=== PATIENT | female | born 1945 | race Caucasian/White ===

== ENCOUNTER 2022-01-11 16:15 | Emergency (ER) | payer OTHER, MEDICARE ==
--- OUTSIDE RECORDS SUMMARY | 2022-01-11 16:18 | XMS REPORT | Continuity of Care Document ---
:1945 Author Organization [facility] t Address [address] [place] [address] Care Team Providers Name Role Phone Efe Caceres MD Primary Care Physician Jana Gracia Attending Clinician Unavailable Melania Caban Attending Clinician Unavailable Rajendra Fraser MD Attending Clinician Sky Burgess Attending Clinician Unavailable Efe Caceres Attending Clinician Unavailable Awa Amaral Attending Clinician AWA VARGAS Attending Clinician Unavailable Amadou Correa MD Attending Clinician Efe Caceres Admitting Clinician Unavailable Sky Burgess Admitting Clinician Unavailable Physician, No Primary or Family Admitting Clinician Unavaila ble Payers Payer Name Policy Type Policy Number Effective Date Expiration Date S ource Problems Condition Condition Condition Status Onset Resolution Last Treating Co mments Source Name Details Category Date Date Treatment Clinician Date Postoperat Postoperat Disease Active 2016-04 M ethodi simone simone 0-26 st hypothyroi hypothyroi 00:00: Ho spita dism dism 00 l No known No known Disease Unive rs active active ity of problems problems [facility] Allergies, Adverse Reactions, Alerts Allergy Allergy Status Severity Reaction(s) Onset Inactive Treating Comm ents Source Name Type Date Date Clinician Penicill DA Active [facility] ins 01-07 [place] 00:00: d 00 [facility] [place] neomycin DA Active U [facility] - [place] 00:00: d 00 [facility] bacitrac DA Active [facility] in 01-07 [place] 00:00: d 00 [facility] polymyxi DA Active [facility] n B 01-07 [place] 00:00: d 00 [facility] Neomycin Propensi Active 2016-04 Method i -Bacitra ty to 0-26 st elena-Poly adverse 00:00: Hospita myxin reaction 00 l s to drug Penicill Propensi Active 2016-04 Method i in G ty to 0-26 st adverse 00:00: Hospita reaction 00 l s to drug Neomycin Propensi Active Hives 2016-04 Univer s -Bacitra ty to 0-26 ity of elena-Poly adverse 00:00: [place] myxin reaction 00 [facility] s Branch Penicill Propensi Active Rash 2016-04 Univer s in G ty to 0-26 ity of adverse 00:00: [place] reaction 00 [facility] NEOMYCIN DRUG Active Hives 2016-04 Univers -BACITRA 0-26 ity of ELENA-POLY 00:00: [place] MYXIN 00 [facility] PENICILL DRUG Active Rash 2016-04 Univers IN G INGREDI 0-26 ity of 00:00: [place] 00 Medical [place] Family History Family Member Diagnosis Comments Start Date Stop Date Source Natural father Stroke [facility] Natural mother Heart disease [facility] Natural mother Stroke [facility] Social History Social Habit Start Date Stop Date Quantity Comments Source Exposure to Not sure University of SARS-CoV-2 [facility] (event) [place] Tobacco use and 2019-04-06 2019-04-06 Never used Universit y of exposure 00:00:00 00:00:00 [facility] Alcohol intake 2017-02-17 2017-02-17 [facility] 00:00:00 00:00:00 non-drinker of alcohol (finding) Sex [birth year] [facility] 00:00:00 00:00:00 Smoking Status Start Date Stop Date Source Never smoker [facility] Medications Ordered Filled Start Stop Current Ordering Indication Dosage Frequency Signature Comments Components Source Medication Medication Date Date Medication? Clinician (SIG) Name Name ASCORBATE 2018-04 Yes Take by Unive rs CALCIUM, 2-13 mouth. ity of VITAMIN C, 09:43: [place] JACK[place] 22 Medical Branch MULTIVITAMI 2018-04 Yes Take by Uni vers N ORAL 2-13 mouth. ity of 09:43: [place] 21 Medical Branch cholecalcif 2018-04 Yes Take by Uni vers jas, 2-13 mouth. ity of vitamin D3, 09:43: [place] 1,000 unit 21 Medical (25 mcg) Branch tablet BYSTOLIC 5 2018-04 Yes Univers mg tablet 2-08 ity of 00:00: [place] 00 Medical Branch losartan 50 2018-04 Yes Univer s mg tablet 0-13 ity of 00:00: [place] 00 Medical Branch metFORMIN 2018-04 Yes 250mg 250 mg. Univ ers 500 mg 0-11 ity of tablet 00:00: [place] 00 [facility] Branch losartan-hy 2018-04 Yes 12.5{tb 12.5 Uni vers drochloroth 0-10 l} tablets. ity of iazide 00:00: [place] 50-12.5 mg 00 Medical per tablet Branch SYNTHROID 2018-04 Yes Univers 75 mcg 0-02 ity of tablet 00:00: [place] 00 Medical Branch simvastatin 2018-0 Yes Univer s 20 mg 9-18 ity of tablet 00:00: [place] 00 [facility] Branch MULTIVITAMI 2016-04 Yes Take by Met hodi N ORAL 0-[address] 14:42: Hospita 10 l CHOLECALCIF 2016-04 Yes Take by Met krystal JAS, 0-[address] VITAMIN D3, 14:42: Hospit a (VITAMIN D3 10 l ORAL) ASCORBATE 2016-04 Yes Take by Metho di CALCIUM 0-[address] (VITAMIN C 14:42: Hospita ORAL) 10 l aspirin 2016-04 Yes 81mg QD Take 81 mg Meth gurpreet (ECOTRIN) 0-[address] 81 MG 14:42: daily. Hospita enteric 10 l coated tablet MULTIVITAMI 2016-04 Yes Take by Met hodi N ORAL 0-[address] 14:42: Hospita 10 l CHOLECALCIF 2016-04 Yes Take by Met hodi JAS, 0-[address] VITAMIN D3, 14:42: Hospit a (VITAMIN D3 10 l ORAL) ASCORBATE 2016-04 Yes Take by Metho di CALCIUM 0-[address] (VITAMIN C 14:42: Hospita ORAL) 10 l aspirin 2016-04 Yes 81mg QD Take 81 mg Meth gurpreet (ECOTRIN) 0-[address] 81 MG 14:42: daily. Hospita enteric 10 l coated tablet BYSTOLIC 2016-04 Yes Method i mg tablet 0-07 st 00:00: Hospita 00 l BYSTOLIC 10 2016-04 Yes Method i mg tablet 0-07 st 00:00: Hospita 00 l SYNTHROID 2016-04 Yes Methodi 75 mcg 0-05 st tablet 00:00: Hospita 00 l SYNTHROID 2016-04 Yes Methodi 75 mcg 0-05 st tablet 00:00: Hospita 00 l simvastatin Yes Method i (ZOCOR) 20 9-28 st MG tablet 00:00: Hospita 00 l simvastatin Yes Method i (ZOCOR) 20 9-28 st MG tablet 00:00: Hospita 00 l metFORMIN Yes Methodi XR 8-20 st (GLUCOPHAGE 00:00: Hospit a -XR) 500 mg 00 l 24 hr tablet losartan-hy Yes Method i drochloroth 8-[address] iazide 00:00: Hospita (HYZAAR) 00 l 50-12.5 mg per tablet metFORMIN Yes Methodi XR 8-20 st (GLUCOPHAGE 00:00: Hospit a -XR) 500 mg 00 l 24 hr tablet losartan-hy Yes Method i drochloroth 8-[address] iazide 00:00: Hospita (HYZAAR) 00 l 50-12.5 mg per tablet Vital Signs Vital Name Observation Time Observation Value Comments Source Systolic blood 2021-01-29 01:09:00 149 mm[Hg] [facility]iver [facility] Diastolic blood 2021-01-29 01:09:00 84 [facility]Hg[facility] 2021-01-29 01:05:00 67 /min [facility] Body temperature 2021-01-29 01:05:00 36.89 Gabi [facility] Respiratory rate 2021-01-29 01:05:00 20 /min [facility] Body height 2021-01-29 01:05:00 162.6 cm [facility] Body weight 2021-01-29 01:05:00 71.532 kg [facility] BMI 2021-01-29 01:05:00 27.07 kg/m2 [facility] Oxygen saturation in 2021-01-29 01:05:00 98 /min [facility] Arterial blood by [facility] Pulse oximetry Branch Procedures This patient has no known procedures. Plan of Care Planned Activity Planned Date Details Comments Source Future Scheduled 2021-12-25 HEPATITIS B VACCINES Met [facility] Test 08:50:37 (1 of 3 - 3-dose series) [code = HEPATITIS B VACCINES (1 of 3 - 3-dose series)] Future Scheduled 2021-12-25 Hepatitis C screening [facility] Test 08:50:37 (procedure) [code = 932517105] Future Scheduled 2021-12-25 SHINGLES VACCINES (1 Met [facility] Test 08:50:37 of 2) [code = SHINGLES VACCINES (1 of 2)] Future Scheduled 2021-12-25 65+ PNEUMOCOCCAL [facility] Test 08:50:37 VACCINE (1 - PCV) [code = 65+ PNEUMOCOCCAL VACCINE (1 - PCV)] Future Scheduled 2021-12-25 HEPATITIS B VACCINES Met [facility] Test 08:50:37 (1 of 3 - 3-dose series) [code = HEPATITIS B VACCINES (1 of 3 - 3-dose series)] Future Scheduled 2021-12-25 Hepatitis C screening [facility] Test 08:50:37 (procedure) [code = 074252763] Future Scheduled 2021-12-25 SHINGLES VACCINES (1 Met [facility] Test 08:50:37 of 2) [code = SHINGLES VACCINES (1 of 2)] Future Scheduled 2021-12-25 65+ PNEUMOCOCCAL [facility] Test 08:50:37 VACCINE (1 - PCV) [code = 65+ PNEUMOCOCCAL VACCINE (1 - PCV)] Encounters Start End Encounter Admission Attending Care Care Encounter Source Date/Time Date/Time Type Type Clinicians Facility Department ID 2022-01-07 2022-01-07 Outpatient TOOTIE Gracia [facility] [id number] [facility] 07:30:00 07:30:00 Jana Armando [facility] 2021-12-30 2021-12-30 Outpatient Arsh ZAHEER LABO [id number] [facility] 14:26:00 14:26:00 Melania Baez [facility] 2021-12-14 2021-12-14 [facility], Bin 1.2.840.1 [id number] 2099 [id number] Methodi 13:20:24 13:20:24 Encounter Sing [id number] 3.430.2.7 Hospit a .3.722234 l .8 2021-12-14 2021-12-14 [facility], Bin 1.2.840.1 [id number] [id number] Methodi 13:20:24 13:20:24 Encounter Sing 95061.1.[address] 3.430.2.7 Hospit a .3.675453 l .8 2021-12-14 2021-12-14 Travel 1.2.840.1 1.2.815.976 [id number] Methodi 00:00:00 00:00:[address] 3.430.2.7 0.2.7.3.698 Ho spita .3.259342 084.8 l .8 2021-12-14 2021-12-14 Travel 1.2.840.1 1.2.396.030 [id number] Methodi 00:00:00 00:00:[address] 3.430.2.7 0.2.7.3.698 Ho spita .3.847461 084.8 l .8 2021-10-28 2021-10-28 Outpatient TOOTIE Burgess Sky [facility] LA0 [id number] [facility] 12:00:00 12:00:00 99 [facility] 2021-10-14 2021-10-14 Outpatient TOOTIE Caceres [facility] [id number] [facility] 12:00:00 12:00:00 Efe 75 [facility] 2021-10-01 2021-10-01 Outpatient TOOTIE Caceres [facility] [id number] [facility] 08:00:00 08:00:00 Efe 23 [facility] 2021-01-28 2021-01-[address] [facility] 1.2.840.114 [id number] Univers 19:59:10 20:28:30 Care [facility] 350.1.13.10 i ty of [place] 4.2.7.2.686 Guillermo as Michael?Blea [id number] Vt dical [address] Medical Office Building 2021-01-28 2021-01-28 Outpatient R [facility] [id number] Univers 20:00:00 20:00:00 [id number] [facility] 2021-01-28 2021-01-28 [facility] [id number] [facility] 20:00:00 20:00:00 AWA itcaity o f [facility] 2020-08-25 2020-08-25 Outpatient Sky Pompa [facility] LA0 [id number] [facility] 12:00:00 12:00:00 93 [facility] 2020-05-02 2020-05-02 Outpatient R [facility] [id number] -[id number] Univers 09:15:00 09:15:00 [id number] [facility] 2019-04-06 2019-04-[address] [facility] 1.2.860.961 [id number] 09:32:04 09:55:34 Visit [facility] 350.1.13.10 Surgical 4.2.7.2.686 Specialti [id number] es [address] [place] Results Test Description Test Time Test Comments Results Result [facility] e Comments - SP FLUORO GUID 2022-01-07 CTRL ACC DEV 16:56:00 [facility] : 1945 Sex: F Name: DOREEN FERNANDEZ [facility] : 1945 Age/S: 76 / F [address] Unit #: [id number] Loc: [place] [address] Phys: Jana Gracia MD Acct: [id number] Dis Date: Status: REG [facility] PHONE #: [phone] Exam Date: 01/07/2022 0940 FAX #: Reason: PORT PLACEMENT EXAMS: CPT: [id number] SP FLUORO GUID CTRL ACC DEV [id number] Fluoro Time: 0:58 DAP (Gy m2): 0.73 Air Kerma (mGy): 3 EXAMINATION: PORT PLACEMENT USING ULTRASOUND AND FLUOROSCOPIC GUIDANCE. HISTORY: Left breast cancer, request is made for port for outpatient chemotherapy. COMPARISON: None. SEDATION: Under my supervision, Versed and fentanyl were administered intravenously for moderate sedation. Pulse oximetry, heart rate, and BP were continuously monitored by an independent trained observer present. I spent 40 minutes of uulb-gm-vnog sedation time with the patient. Reference Air Kerma: 1 mGy. Fluoroscopic time: 58 seconds. One fluoroscopic image was obtained. TECHNIQUE: The risks, benefits and alternatives were discussed and informed consent was obtained. Prior to beginning the procedure, [place] Protocol was used to confirm the patient's identity and planned procedure. Maximum sterile barriers including cap, mask, hand hygiene, sterile gloves, sterile gown, large sterile drape and cutaneous antisepsis were used. Sterile ultrasound technique were followed including sterile gel and sterile probe cover. Prior to the procedure, the central veins were evaluated by ultrasound, an image recorded and saved in PACS. The skin over the right internal jugular vein was sterilely prepped, draped and infiltrated with 1% lidocaine. The vein was accessed with a 21 gauge needle using realtime ultrasound guidance. A guidewire and catheter were then passed centrally using fluoroscopic guidance. The intravascular length from the access site to the right atrium was then assessed. After infiltrating the skin in the subclavicular region with 1% lidocaine, a short transverse incision was made and the pocket for the port reservoir was formed by blunt dissection. The catheter was tunneled to the IJ access site, cut to the appropriate length and inserted through a peel-away sheath. The catheter was flushed with 100U/ml heparin and the access needle was removed. The deep tissues were approximated using 3-0 Vicryl and the incision closed using Dermabond. The incision in the lower neck was closed with Dermabond. PAGE 1 Signed Report (CONTINUED) Name: DOREEN FERNANDEZ [place] : 1945 Age/S: 76 / F [address] [place] Unit #: [id number] Loc: [place] [address] Phys: Jana Gracia MD Acct: [id number] Dis Date: Status: [facility] PHONE #: [phone] Exam Date: 01/07/2022 0940 FAX #: Reason: PORT PLACEMENT EXAMS: CPT: [id number] SP FLUORO GUID CTRL ACC DEV 45192 Fluoro Time: 0:58 DAP (Gy m2): 0.73 Air Kerma (mGy): 3 (Continued) ESTIMATED BLOOD LOSS: less than 30 milliliters. DISCHARGED TO: Recovery and then to home. CONDITION: Stable. FINDINGS: Ultrasound image shows a patent vein in the lower neck. The final fluoroscopic image demonstrates the catheter with its tip at the right atrium. No complications are seen. IMPRESSION: Successful chest wall port placement. PLAN: The port is ready for immediate use. Please note that a power injectable port was placed. When treatment is completed, removal can be scheduled by calling VIR. at 1656 Reported and signed by: Wagner Mcgee M.D. CC: Efe Caceres MD; Jana Gracia MD PAGE 2 Signed Report Name: DOREEN FERNANDEZ [place] : 1945 Age/S: 76 / F [address] Unit #: [id number] Loc: [place] [address] Phys: Jana Gracia MD Acct: [id number] Dis Date: Status: REG SDC PHONE #: [phone] Exam Date: 01/07/202240 FAX #: Reason: PORT PLACEMENT EXAMS: CPT: [id number] SP FLUORO GUID CTRL ACC DEV 85035 Fluoro Time: 0:58 DAP (Gy m2): 0.73 Air Kerma (mGy): 3 (Continued) Technologist: Jonathan Alicea Trnscb Date/Time: 01/07/2022 (9686) [email or web address] Orig Print D/T: S: 01/07/2022 (1264) PAGE 3 Signed Report CBC W/AUTO DIFF 2022-01-07 08:29:00 Test Item Value Reference Range Interpretation Comme nts WHITE BLOOD CELL (test code = WBC) 5.9 K/mm3 3.5-11.0 N RED BLOOD CELL (test code = RBC) 4.19 M/mm3 4.70-6.10 L HEMOGLOBIN (test code = HGB) 12.9 G/DL 10.4-14.9 N HEMATOCRIT (test code = HCT) 38.1 % 31.5-44.1 N MEAN CELL VOLUME (test code = MCV) 90.9 Fl 84.5-98.6 N MEAN CELL HGB (test code = MCH) 30.8 pg 27.0-34.2 N MEAN CELL HGB CONCETRATION (test code = MCHC) 33.9 G/DL 31.5-34. 0 N RED CELL DISTRIBUTION WIDTH (test code = RDW) 13.2 SD 11.5-14. 5 N PLATELET COUNT (test code = PLT) 304 K/mm3 150-450 N MEAN PLATELET VOLUME (test code = MPV) 12.10 fL 7.0-10.5 H NEUTROPHIL % (test code = NT%) 54.5 % 40-76 N IMMATURE GRANULOCYTE % (test code = IG%) 0.2 % 0.0-5.0 N LYMPHOCYTE % (test code = LY%) 32.2 % 20.5-51.1 N MONOCYTE % (test code = MO%) 9.7 % 1.7-9.3 H EOSINOPHIL % (test code = EO%) 3.1 % 0.0-6.0 N BASOPHIL % (test code = BA%) 0.3 % 0.0-2.0 N NUCLEATED RBC % (test code = NRBC%) 0.0 /100WBC% 0.0-1.0 N NEUTROPHIL # (test code = NT#) 3.2 K/mm3 1.8-7.6 N IMMATURE GRANULOCYTE # (test code = IG#) 0.01 x10 3/uL 0.00-0.03 N LYMPHOCYTE # (test code = LY#) 1.9 K/mm3 0.6-3.2 N MONOCYTE # (test code = MO#) 0.6 K/mm3 0.3-1.1 N EOSINOPHIL # (test code = EO#) 0.2 K/mm3 0.0-0.4 N BASOPHIL # (test code = BA#) 0.0 K/mm3 0.0-0.1 N NUCLEATED RBC # (test code = NRBC#) 0.0 K/mm3 0.0-0.1 N MANUAL DIFF REQUIRED (test code = MDIFF) NO DIFF/SCN CRITERIA PROTHROMBIN [id number] 08:29:00 Test Item Value Reference Range Interpretation Comments PT PATIENT (test 11.2 SECONDS 9.3-12.9 N code = PTP) INTERNATIONAL NORMAL 0.98 INR Unit 0.8-1.2 N TARGE T INR BY RATIO (test code = INDICATIO N Indication INR) INR1. Prophylax is of venous thrombos is 2.0 - 3.0 (orthoped ic surgery), Proph ylaxis of venous throm bosis (other than hig h-risk surgery), Treat ment of Deep Vein Thrombosis/Pulm onary Embolism, Preve ntion of systemic emb olism - Tissue heart va lves, Acute Myocardia l Infarction (to prevent systemic emboli sm), Valvular heart disease, Acute Myocardial Infa rction (to prevent sys temic embolism), Valv ular heart disease, Atrial Fibrillation, Bileaflet mecha nical valve in aortic position.2. Mec hanical prosthetic valv es (high risk), 2. 5 - 3.5 Presence of Lup us Anticoagulant o r Antiphospholipi d Antibodies, Pre vention of systemic emb olism - Acute Myocardia l Infarction (to prevent recurrent infar ct). THROMBOPLASTIN TIME [id number] 08:29:00 Test Item Value Reference Range Interpretation Comments THROMBOPLASTIN TIME PARTIAL 32.1 SECONDS 26-35 N (test code = PTT) PATH [id number] 15:03:00 Test Item Value Reference Range Interpretation Comments PATH CONSULTATION (test code = OC) RUN DATE: 12/30/21 [facility] PAGE 1 RUN TIME: 1504 Specimen Inquiry RUN USER: INTERFACE PATIENT: DOREEN FERNANDEZ LOC: [facility] U #: [id number] AGE/SX: 76/F ROOM: RE12/30/21REG DR: Melania Caban MD : 43 BED: DIS: STATUS: REG REF TLOC: SPEC #: [id number] RECD: 12/30/21 STATUS: ALESSANDRA REJohn #: [id number] BOB: [birth year][address] [facility] [address]: Melania Caban MD ENTERED: 12/30/21597 SP TYPE: CONSULT OTHR DR: ORDERED: ANATOMIC SPEC, 0 $ Amount PROCEDURES: 0 $ Amount (12/30/21-1501) TISSUES: A. 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 All material will be returned after review. Specimen type: Ultrasound-guided needle core biopsyTumor site: Left breast mass at 6:00 5 cm from nippleTumor quantitation: 3 of 3 cores, 6 mm 6 mm and 3.5 mm in contiguous lengthHistologic type: invasive ductal carcinomaHistologic grade: Hannah grade 3 of 3Tubules, nuclei and mitoses: 3, 3 and 3 respectivelyLVSI: not identifiedMicrocalcificati ons: identified within ductal carcinoma in-situ (comedonecrosis)Prognostic markers: ER IHC, CT IHC, Her2/vasu IHC, Ki-67 IHC and Her2 FISHBlock: Performed on block A1 Additionally E-cadherin immunohistochemical stain with appropriate controls was performedat the originating institution and it shows membranous reactivity within the tumor cellsconsistent with ductal origin. The properly controlled SMM1 immunohistochemical stainshows loss of myoepithelial cells within the invasive carcinoma. BREAST PREDICTIVE/PROGNOSTIC MARKERS - Estrogen receptor: Negative, 0% - Progesterone receptor: negative, 0% ER and CT had internal controls present and positive (reacted appropriately).- HER2: Low positive, 1+ CONTINUED ON NEXT PAGE RUN DATE: 12/30/21 [facility] PAGE 2 RUN TIME: 1504 Specimen Inquiry RUN USER: INTERFACE SPEC #: [id number] PATIENT: DOREEN FERNANDEZ #[id number] (Continued) MICROSCOPIC DESCRIPTION (Continued) - Ki-67: Unfavorable/high proliferation, 60 % HER2 FISH: Not amplified/ negative HER2:BARRETT-17 ratio 1.0. Average number of HER2 signals per nucleus - 2.0 Signed SIGNATURE ON FILE Leidy Hale 12/30/21 1503 END OF REPORT SURGICAL [id number] 15:58:00 Test Item Value Reference Range Interpretation Comments SURGICAL OUTREACH (test code = SO) RUN DATE: 11/17/21 [facility] PAGE 1 RUN TIME: 1718 Specimen Inquiry RUN USER: INTERFACE JADA ENT: DOREEN FERNANDEZ LOC: [facility] Agosto #: [id number] AGE/SX: 75/F ROOM: RE10/28/21[facility] DR: Sky Burgess III, MD : [birth year] BED: DIS: STATUS: DEP REF TLOC: SPEC #: [id number] RECD: 10/28/21 STATUS: ALESSANDRA REJohn #: [id number] BOB: [birth year][address] [facility] [address]: Sky Burgess III, MD ENTERED: 10/28/21 SP TYPE: SURGICAL OTHR DR: [facility] ORDERED: 94079, 67662, 99142, 73988/4, ANATOMIC SPEC, SPECIMEN TRACK COPIES TO: Sky Burgess III, MD [address] [facility] [address] [place] [address] [facility] Auto Fax Client [facility] [phone] PROCEDURES: 87894 (10/30/21-1813) 26236 (11/05/21-1555) 35682 (11/05/21) 60172 (11/05/21) SPECIMEN TRACK (10/28/21-144) TISSUES: A. BREAST BIOPSY, FEMALE LEFT - LEFT BREAST MASS ADDENDUM FINDINGS Addendum #1 Entered: 11/17/21 Fluorescence in situ Hybridization (FISH) for HER2/BARRETT-17 Dual-Probe (Breast Cancer)(performed at [facility] oncology, for details refer to report # [id number] on11/14/2021) Result:- Negative/Not Amplified- HER2/BARRETT-17 ratio: 1.0- Avg number of HER 2 Signals/Nucleus: 2.0 Addendum Signed SIGNATURE ON FILE Sirena Yuo 11/17/211718 CONTINUED ON NEXT PAGE RUN DATE: 11/17/21 [facility] PAGE 2 RUN TIME: 1718 Specimen Inquiry RUN USER: INTERFACE SPEC #: [id number] PATIENT: DOREEN FERNANDEZ #[id number] (Continued) ------- FINAL DIAGNOSIS Breast, left, mass at 6 o'clock, 5 cm from nipple, ultrasound guided core biopsy:- INVASIVE DUCTAL ADENOCARCINOMA, NOS- Grade 3, score 9- Associated HIGH GRADE DUCTAL CARCINOMA IN SITU with comedo necrosis andmicrocalcifications Histology grading (Modified Dasilva-Sam):- Tubular formation: None 3/3- Nuclear atypia: Marked 3/3- Mitotic rate: High 3/3 Biomarkers by immunohistochemistry:- Negative for estrogen receptors (0%); clone SP-1- Negative for progesterone receptors (0%); clone 1294- Ki-67 cell proliferation rate, 60%; clone 30-9- HER2, parrtially 1+ to focally 2+; clone 4B5 Additional IHC:- E-Cadherin, Positive in tumor cells- SMM1, Negative for myoepithelial cells in invasive tumor cell nests (positive inmyoepithelial of DCIS component) Comment:FISH study is requested for further evaluation of HER2 status. Addendum report to follow. Note: [facility]-67, SMM1 and [facility] and [facility] For each marker tested above, the positivecontrol is positive and the negative control is negative. Findings were communicated to Sky Hollingsworth by phone on 11/05/21 at 3:55 p.m. GROSS DESCRIPTION Left breast 6:00 5 cm from nipple. It consists of 3 tissue cores measuring 1-1.5 cm inlength. All as A 1. Excised time: 11:05 a.m. 10/28/2021Formalin time: 11:09 a.m.Formalin fixation duration: >24 hours-<48 hours Technical component performed at [id number] , [place] [address] Unless gross only, the diagnosis is based upon microscopic examination.Immunohistochemistry : This test was developed and its performancecharacteristics determined by this laboratory. It has not been approved nor CONTINUED ON NEXT PAGE RUN DATE: 11/17/21 [facility] PAGE 3 RUN TIME: 1719 Specimen Inquiry RUN USER: INTERFACE SPEC #: [id number] PATIENT: DOREEN FERNANDEZ #[id number] (Continued) ------- GROSS DESCRIPTION (Continued) does it need approval by the [place] FDA. Appropriate positive and negative controlsare reviewed and judged to be acceptable. This laboratory is certified underthe Clinical Laboratory Improvement Amendments (CLIA-88) as qualified toperform high complexity clinical laboratory testing. MICROSCOPIC DESCRIPTION Findings are incorporated into the diagnosis/comment sections. Signed SIGNATURE ON SENDY Denis Yu 11/05/21 1558 END OF REPORT
[2022-01-11 18:27] LABS: Absolute Lymphocytes (CBC) 1.4 K/uL (0.7-4.9); Hematocrit 37.8 % (36.0-45.0); Lymphocytes % 12.5 % (15.3-44.8); MCV 91.1 fL (80-100); MPV 10.9 fL (7.6-11.3); RBC Red Blood Cell Count 4.15 M/uL (3.86-4.86)
[2022-01-11 18:52] LABS: Albumin 3.1 g/dL (3.4-5.0); Bilirubin Total 0.5 mg/dL (0.2-1.0); Magnesium 2.2 mg/dL (1.8-2.4); Potassium 4.1 mmol/L (3.5-5.1); Protein, Total 6.4 g/dL (6.4-8.2); Thyroid Stimulating Hormone 0.722 uIU/mL (0.360-3.740); Troponin High Sensitivity 5.9 pg/mL (<58.9)
--- NOTE | 2022-01-11 19:01 | ER ---
Nurse's Notes [facility] Name: Yokasta Fernandez Age: 76 yrs Sex: Female : 1945 Arrival Date: 01/11/2022 Time: 16:17 Bed 14 Private MD: Fernanda Caceres C Diagnosis: Intermittent Palpitations Presentation: 01/11 16:23 Chief complaint: Patient states: Had first chemo tx last Tuesday, today "it started to ph feel like my heart was skipping beats." Denies SOB, chest pain or nausea .Currently being tx for cancer in L breast. Coronavirus screen: Vaccine status: Patient reports receiving the 2nd dose of the covid vaccine. Ebola Screen: No symptoms or risks identified at this time. Initial Sepsis Screen: Does the patient meet any 2 criteria? No. Patient's initial sepsis screen is negative. Does the patient have a suspected source of infection? No. Patient's initial sepsis screen is negative. Risk Assessment: Do you want to hurt yourself or someone else? Patient reports no desire to harm self or others. Onset of symptoms was January 11, 2022. 16:23 Method Of Arrival: Ambulatory ph 16:23 Acuity: MICHELLE 3 ph Historical: - Allergies: 16:27 PENICILLINS; ph 16:27 Neosporin ([id number]); ph - PMHx: 16:27 breast cancer, L; ph - Immunization history:: Flu vaccine is up to date. - Social history:: Smoking status: Patient denies any tobacco usage or history of. Screenin:30 Abuse screen: Denies threats or abuse. Denies injuries from another. tp1 18:33 Nutritional screening: No deficits noted. Tuberculosis screening: No symptoms or risk tp1 factors identified. Fall Risk No fall in past 12 months (0 pts). No secondary diagnosis (0 pts). IV access (20 points). Ambulatory Aid- None/Bed Rest/Nurse Assist (0 pts). Gait- Normal/Bed Rest/Wheelchair (0 pts) Mental Status- Oriented to own ability (0 pts). Assessment: 16:35 General: Appears in no apparent distress. comfortable, Behavior is calm, cooperative. tp1 Pain: Denies pain. Neuro: Level of Consciousness is awake, alert, obeys commands, Oriented to person, place, time, situation, Denies blurred vision headache. Cardiovascular: Cardiovascular: Denies chest pain, shortness of breath, Capillary refill < 3 seconds in bilateral fingers Patient's skin is warm and dry. Pulses are all present. Respiratory: Airway is patent Respiratory effort is even, unlabored. GI: Abdomen is flat, non-distended. : No signs and/or symptoms were reported regarding the genitourinary system. EENT: No signs and/or symptoms were reported regarding the EENT system. Derm: Skin is pink, warm \\T\\ dry. Bruising that is dark purple, yellow, on right clavicle and anterior aspect of right upper chest reports bruising is from port placement . Musculoskeletal: Circulation, motion, and sensation intact. 17:30 Reassessment: Patient appears in no apparent distress at this time. No changes from tp1 previously documented assessment. Patient is alert, oriented x 3, equal unlabored respirations, skin warm/dry/pink. continuing to CO palpitations, at bedside. 17:51 Reassessment: Received call from outside lab for recollect on all blood work due to vg1 hemolyzation. 18:31 Reassessment: Patient appears in no apparent distress at this time. No changes from tp1 previously documented assessment. Patient and/or family updated on plan of care and expected duration. Pain level reassessed. Patient is alert, oriented x 3, equal unlabored respirations, skin warm/dry/pink. continuing to complain of palpitations Patient denies pain at this time. 19:09 Reassessment: Patient and/or family updated on plan of care and expected duration. Pain vc1 level reassessed. Patient is alert, oriented x 3, equal unlabored respirations, skin warm/dry/pink. Vital Signs: 16:23 BP 150 / 79; Pulse 75; Resp 18; Temp 98.5; Pulse Ox 98% on R/A; Weight 68.04 kg; Height ph 5 ft. 4 in. (162.56 cm); 16:35 BP 136 / 68; Pulse 70; Resp 13; Pulse Ox 98% on R/A; tp1 17:30 BP 136 / 68; Pulse 70; Resp 13; Pulse Ox 97% on R/A; tp1 18:38 BP 170 / 72; Pulse 67; Resp 14; Pulse Ox 100% on R/A; tp1 19:09 BP 150 / 84; Pulse 73; Resp 14; Pulse Ox 100% ; vc1 16:23 Body Mass Index 25.75 (68.04 kg, 162.56 cm) ph 18:38 provider notified tp1 ED Course: 16:17 Patient arrived in ED. mr 16:17 Fernanda Caceres MD is Private Physician. mr 16:26 Triage completed. ph 16:28 Arm band placed on Patient placed in an exam room, on a stretcher. ph 16:33 Jessica Louis MD is Attending Physician. sd2 16:35 Danii Duran RN is Primary Nurse. tp1 16:35 Patient has correct armband on for positive identification. Placed in gown. Bed in low tp1 position. Call light in reach. Side rails up X2. Adult w/ patient. 16:35 Client placed on continuous cardiac and pulse oximetry monitoring. NIBP monitoring tp1 applied. 16:48 Inserted saline lock: 20 gauge in left forearm, using aseptic technique. Blood tp1 collected. 18:33 No provider procedures requiring assistance completed. tp1 18:39 Notified ED physician of vital signs. tp1 19:00 Fernanda Caceres MD is Referral Physician. sd2 19:17 IV discontinued, intact, bleeding controlled, No redness/swelling at site. Pressure vc1 dressing applied. Administered Medications: No medications were administered Medication: 17:30 VIS not applicable for this client. tp1 Outcome: 19:00 Discharge ordered by . sd2 19:17 Discharged to home ambulatory, with significant other. vc1 19:17 Condition: good 19:17 Discharge instructions given to patient, Instructed on discharge instructions, follow up and referral plans. Demonstrated understanding of instructions, follow-up care. 19:17 Patient left the ED. vc1 Signatures: Jere Luisa MorrisonNannette, RN RN ph Lvoe Patrick, RN RN vg1 Danii Duran RN RN tp1 Ninfa Leslie RN RN vc1 Jessica Louis MD MD sd2
--- NOTE | 2022-01-11 19:01 | EDPHYS ---
Physician Documentation [facility] Name: Yokasta Fernandez Age: 76 yrs Sex: Female : 1945 Arrival Date: 01/11/2022 Time: 16:17 Bed 14 Private MD: Fernanda Caceres C ED Physician Jessica Louis HPI: 01/11 16:40 This 76 yrs old Female presents to ER via Ambulatory with complaints of Palpitations. sd2 16:40 76-year-old female presents with chief complaint of palpitations. She reports that she sd2 initially felt the sensation last night where it felt like her heart skipped a beat. She reports she has had this sensation off and on since then into today. She reports she called and spoke with her oncologist who told her to come be evaluated and have an EKG performed. The patient recently started chemotherapy on Tuesday and then was placed on Decadron for the following few days. She has never received this treatment previously. She does have a history remotely of palpitations in the past that she saw Dr. Kilpatrick for with a negative workup at that time. Pt currently asymptomatic. Denies any associated CP, SOB, nausea, vomiting or diaphoresis. Denies any fevers or recent illness.. Historical: - Allergies: 16:27 PENICILLINS; ph 16:27 Neosporin ([id number]); ph - PMHx: 16:27 breast cancer, L; ph - Immunization history:: Flu vaccine is up to date. - Social history:: Smoking status: Patient denies any tobacco usage or history of. ROS: 16:40 Constitutional: Negative for fever, chills, and weight loss, Eyes: Negative for injury, sd2 pain, redness, and discharge. 16:40 Respiratory: Negative for shortness of breath, cough, wheezing. Abdomen/GI: Negative for abdominal pain, nausea, vomiting, diarrhea. MS/Extremity: Negative for injury and deformity, Skin: Negative for injury, rash, and discoloration, Neuro: Negative for headache, numbness and tingling. 16:40 Cardiovascular: Positive for palpitations, Negative for chest pain, edema. Exam: 16:40 Constitutional: This is a well developed, well nourished patient who is awake, alert, sd2 and in no acute distress. Head/Face: Normocephalic, atraumatic. Eyes: EOMI, normal conjunctiva bilaterally Chest/axilla: Normal chest wall appearance and motion. Nontender with no deformity. Cardiovascular: Regular rate and rhythm with a normal S1 and S2. No gallops, murmurs, or rubs. 2+ distal pulses. Respiratory: Lungs have equal breath sounds bilaterally, clear to auscultation and percussion. No rales, rhonchi or wheezes noted. No increased work of breathing, no retractions or nasal flaring. Abdomen/GI: Soft, non-tender, with normal bowel sounds. No guarding or rebound. No evidence of tenderness throughout. Skin: Warm, dry with normal turgor. Normal color with no rashes, no lesions, and no evidence of cellulitis. MS/ Extremity: Pulses equal, no cyanosis. Neurovascular intact. Full, normal range of motion. Ambulatory without difficulty. Psych: Awake, alert, with orientation to person, place and time. Behavior, mood, and affect are within normal limits. 16:43 ECG was reviewed by the Attending Physician. NSR, rate 74, no STEMI criteria, sd2 incomplete RBBB present Vital Signs: 16:23 BP 150 / 79; Pulse 75; Resp 18; Temp 98.5; Pulse Ox 98% on R/A; Weight 68.04 kg; Height ph 5 ft. 4 in. (162.56 cm); 16:35 BP 136 / 68; Pulse 70; Resp 13; Pulse Ox 98% on R/A; tp1 17:30 BP 136 / 68; Pulse 70; Resp 13; Pulse Ox 97% on R/A; tp1 18:38 BP 170 / 72; Pulse 67; Resp 14; Pulse Ox 100% on R/A; tp1 19:09 BP 150 / 84; Pulse 73; Resp 14; Pulse Ox 100% ; vc1 16:23 Body Mass Index 25.75 (68.04 kg, 162.56 cm) ph 18:38 provider notified tp1 MDM: 16:33 Patient medically screened. sd2 16:40 Differential diagnosis: Differential diagnosis includes but is not limited to: ACS, sd2 DVT/PE, pneumothorax, dissection, musculoskeletal, anxiety, anemia, electrolyte abnormality, pneumonia, CHF, COPD among others. Data reviewed: vital signs, nurses notes. 18:58 Data reviewed: lab test result(s), EKG. Counseling: I had a detailed discussion with sd2 the patient and/or guardian regarding: the historical points, exam findings, and any diagnostic results supporting the discharge/admit diagnosis, lab results, the need for outpatient follow up. Medical screen evaluation completed. [facility] emergency medical condition absent. ED course: Labs reviewed. Labs grossly WNCL. No significant electrolyte abnormalities. Trop neg. EKG with no ischemic changes. No events noted on telemetry. Thyroid function WNL for patient. Pt has Amr Physician, Dr. Ramirez, to follow up with outpatient. She is comfortable with plan for discharge and outpatient follow up. Verbalizes understanding of strict return precautions. . 01/11 16:40 Order name: CBC with Diff 01/11 16:40 Order name: CMP; Complete Time: 18:58 01/11 16:40 Order name: Magnesium; Complete Time: 18:58 01/11 16:40 Order name: TSH; Complete Time: 18:58 01/11 16:40 Order name: Troponin High Sensitivity; Complete Time: 18:58 01/11 16:40 Order name: EKG; Complete Time: 16:41 01/11 17:56 Order name: Misc. Order: Recollect for all blood work; Complete Time: 18:05 vg1 Administered Medications: No medications were administered Disposition Summary: 01/11/22 19:00 Discharge Ordered Location: Home sd2 Problem: new sd2 Symptoms: have improved sd2 Condition: Stable sd2 Diagnosis - Intermittent Palpitations sd2 Followup: sd2 - With: - When: 2 - 3 days - Reason: Recheck today's complaints, Continuance of care, Re-evaluation by your physician Discharge Instructions: - Discharge Summary Sheet sd2 - Palpitations sd2 Forms: - Medication Reconciliation Form sd2 - Thank You Letter sd2 - Antibiotic Education sd2 - Prescription Opioid Use sd2 Signatures: Dispatcher [employer] Nannette Montes RN RN ph Garcia, Victoria, RN RN vg1 Jessica Louis MD MD sd2
[2022-01-11 21:48] LABS: Blood Morphology Comment NOTED (NOT SEEN); Platelet Estimate ADEQ; Poikilocytosis 1+; White Blood Cell Scan OK (OK)
[2022-01-12 23:27] VITALS: TEMP 98.5
[2022-01-12 23:35] VITALS: O2SAT 100
[2022-01-12 23:37] VITALS: BP 150/84
--- NOTE | 2022-01-13 06:35 | EKG ---
Test Date: 2022-01-11 Test Time: 16:36:17 Corrections Sergeant: TP MEASUREMENT RESULTS: Intervals: Rate: 74 WA: 144 QRSD: 92 QT: 402 QTc: 446 [place]: P: 41 WA: 144 QRS: -37 T: 57 INTERPRETIVE STATEMENTS: Normal sinus rhythm Left axis deviation Incomplete right bundle branch block Septal infarct, age undetermined Abnormal ECG Compared to ECG 01/16/2016 11:02:19 Incomplete right bundle-branch block now present Myocardial infarct finding now present Sinus bradycardia no longer present ST (T wave) deviation no longer present Possible ischemia no longer present Electronically Signed On 01-13-22 06:31:34 CDT by Cosme Ramirez
== END 2022-01-11 19:17 | disposition home or self-care (01) ==
LOC: ER 16:15
DX: R00.2 Palpitations (principal); Z85.3 Personal history of malignant neoplasm of breast
CPT/HCPCS: 36415; 80053; 83735; 84443; 84484; 85025; 93005; 99283

== ENCOUNTER 2022-03-29 07:38 | Day surgery (SDC) | payer OTHER, MEDICARE ==
[2022-03-23 11:24] LABS: Absolute Lymphocytes (CBC) 1.5 K/uL (0.7-4.9); Hematocrit 34.7 % (36.0-45.0); MCV 95.4 fL (80-100); MPV 9.1 fL (7.6-11.3); RBC Red Blood Cell Count 3.64 M/uL (3.86-4.86)
[2022-03-23 11:35] LABS: Protime INR 1.04
--- NOTE | 2022-03-23 11:38 | RAD REPORT ---
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 FINDINGS: The lungs are clear. Interstitial pattern is not grossly different from the 2010 comparis on. Right-sided Port-A-Cath is in place. No failure or volume overload. Heart size is normal and central vasculature is within normal limits. No pleural effusion or pneumo thorax seen. No acute bony finding noted. No aortic abnormality. IMPRESSION: No acute cardiopulmonary process.
[2022-03-23 11:39] LABS: Potassium 4.1 mmol/L (3.5-5.1)
[2022-03-23 12:59] LABS: Blood Morphology Comment NOT SEEN (NOT SEEN); Platelet Estimate ADEQ
--- NOTE | 2022-03-23 14:12 | EKG ---
Test Date: 2022-03-23 Test Time: 10:53:14 Shoe Repair Supervisor: OSITO MEASUREMENT RESULTS: Intervals: Rate: 62 MT: 166 QRSD: 82 QT: 410 QTc: 416 [place]: P: 50 MT: 166 QRS: -27 T: 52 INTERPRETIVE STATEMENTS: Normal sinus rhythm Normal ECG Compared to ECG 01/31/2022 14:59:06 Ventricular premature complex(es) no longer present ST (T wave) deviation no longer present Electronically Signed On 03-23-22 14:12:23 CRM MANAGER by Steve Hayes
[~2022-03-29 07:38] MED LIST: HEPA 1000U/500MLS 0 UNIT/0 ML BAG IV ONE; LIDOCAINE 1% 20 ML MDV ONE
[2022-03-29] MEDS ORDERED: NA CHLORIDE 0.9% 500 ML ONE (07:42)
[2022-03-29 08:06] VITALS: TEMP 97
[2022-03-29] MEDS ORDERED: FENTANYL CITR 100 MCG/2 ML ONE (08:56)
[2022-03-29] MEDS ORDERED: MIDAZOLAM HCL 2 MG/2 ML INJ ONE (08:57)
[2022-03-29] MEDS ORDERED: ATROPINE SULF 1 MG/10 ML SYR IV ONE (08:57)
[2022-03-29] MEDS ORDERED: NA CHLORIDE 0.9% 50 ML IV ONE (08:57)
[2022-03-29 11:56] VITALS: BP 113/51; O2SAT 97
--- NOTE | 2022-03-29 18:06 | OP ---
Surgeon: Cosme Ramirez MD Auto Tech: Phambyron Meier. Admitted to my service as an outpatient on 03/29/2022. The patient underwent a left heart catheteriz ation with selective coronary arteriogram. Indication: Unstable angina. Ms. Fernandez is a 76-year-old. Has a past medical history of hypertens ion, dyslipidemia, diabetes. Admitted to the veterinary laboratory diagnostician today for heart catheterization, selective cor onary arteriogram, and common femoral artery angiogram. Indication was unstable angina. Procedure In Detail: In the veterinary laboratory diagnostician, she was prepped and draped in the routine sterile fashion. Gi steven Versed and fentanyl for sedation. A 6-Vietnamese sheath introduced in the right common femoral arter y successfully using the Seldinger technique and 10 cc of Xylocaine. JR4 catheter and JL4 catheter w ere used to do the diagnostic catheterization. Her RCA was small, nondominant, free of disease. Her left main was normal. Her LAD had some minor to moderate plaquing in the middle of it without any f ocal stenosis. Her LAD was small. Circumflex was large, was dominant, free of disease. There were no complications. Blood Loss: 5 cc. Anesthesia: Total conscious sedation was 30 minutes. Postoperative Diagnosis: Minimal coronary artery disease. Plan: Plan is for medical therapy. The patient will remain at 2 hours of bedrest after her Angio-Se al. She will go home today. We will see her in the office in 2 weeks. JESUS/SUNNY Voice ID: [id number] Report ID: [id number]
== END 2022-03-29 11:57 | disposition home or self-care (01) ==
LOC: CCL 07:38
DX: I25.110 Atherosclerotic heart disease of native coronary artery with unstable angina pectoris (principal); I49.3 Ventricular premature depolarization; I10 Essential (primary) hypertension; E78.2 Mixed hyperlipidemia; E11.9 Type 2 diabetes mellitus without complications; E03.9 Hypothyroidism, unspecified; C50.912 Malignant neoplasm of unspecified site of left female breast; Z79.82 Long term (current) use of aspirin; Z79.899 Other long term (current) drug therapy; Z88.0 Allergy status to penicillin; Z88.8 Allergy status to other drugs, medicaments and biological substances; Z91.048 Other nonmedicinal substance allergy status; Z82.49 Family history of ischemic heart disease and other diseases of the circulatory system
CPT/HCPCS: 93005; 85025; 80048; 36415; 85610; 85730; 71046; 93454; C1893; Q9966; C1760; J2250; J3010; J7040; J0461; J0583; J1644

== ENCOUNTER 2024-02-07 15:56 | Emergency (ER) | payer OTHER, MEDICARE ==
--- NOTE | 2024-02-07 16:46 | EDPHYS ---
Physician Documentation [facility] Name: Yokasta Fernandez Age: 78 yrs Sex: Female : 1945 Arrival Date: 02/07/2024 Time: 15:56 Bed IW1 Private MD: Fernanda Caceres C ED Physician Pan Lopez HPI: 02/06 16:42 This 78 yrs old Female presents to ER via Ambulatory with complaints of Throat pain, kb Ingestion-germex, burning sensation. 16:42 Pt is a 78 year old female who presents for burning to tongue and throat after kb accidentally swallowing some Germex hand environmental designer. States she used some on her hands and it hadn't dried all of the way before she put her omeprazole pill into her hand and then took it. States she didn't realize the germex had goten on the pill before she put it in her mouth. States she has been drinking water and the burning sensation is going away, but she was concerned that she did something harmful so she wanted to come in to be sure. . Historical: - Allergies: 16:14 Neosporin ([id number]-[id number]); ap3 16:14 PENICILLINS; ap3 - PMHx: 16:14 breast cancer; ap3 - Immunization history:: Client reports receiving the 2nd dose of the Covid vaccine. - Infectious Disease History:: Denies. - Social history:: Smoking status: Patient denies any tobacco usage or history of. ROS: 16:40 Constitutional: As per HPI kb Exam: 16:40 Constitutional: This is a well developed, well nourished patient who is awake, alert, kb and in no acute distress. Head/Face: Normocephalic, atraumatic. ENT: Moist Mucous membranes Cardiovascular: Regular rate Respiratory: Respirations even and unlabored. No increased work of breathing. Talking in full sentences Skin: Warm, dry with normal turgor. Normal color. MS/ Extremity: Pulses equal, no cyanosis. Neurovascular intact. Full, normal range of motion. Neuro: Awake and alert, GCS 15, oriented to person, place, time, and situation. Moves all extremities. Normal gait. 16:40 ENT: Mouth: is normal, Posterior pharynx: is normal, Vital Signs: 16:12 BP 170 / 80; Pulse 64; Resp 17; Temp 97.8; Pulse Ox 100% ; Weight 65.77 kg; Height 5 ap3 ft. 4 in. ; 16:12 Body Mass Index 24.89 (65.77 kg, 162.56 cm) ap3 MDM: 16:20 Medical Screening Exam initiated ec2 16:41 Differential diagnosis: chemical burn, FB ingestion. Data reviewed: vital signs, nurses kb notes. Test considered but Not performed: X-ray: chest xray considered but lungs clear bilaterally, resp even and unlabored, symptoms improving. Counseling: I had a detailed discussion with the patient and/or guardian regarding the historical points, exam findings, and any diagnostic results supporting the discharge/admit diagnosis, the need for outpatient follow up, a family practitioner, to return to the emergency department if symptoms worsen or persist or if there are any questions or concerns that arise at home. Administered Medications: No medications were administered Disposition Summary: 02/07/24 16:45 Discharge Ordered Notes: Location: Home kb Condition: Stable kb Diagnosis - Accidental ingestion of hand environmental designer kb Followup: kb - With: Emergency Department - When: As needed - Reason: Worsening of condition Followup: kb - With: Private Physician - When: 2 - 3 days - Reason: Recheck today's complaints, Continuance of care, Re-evaluation by your physician Discharge Instructions: - Discharge Summary Sheet kb - Nontoxic Ingestion, Adult kb Forms: - Medication Reconciliation Form kb - Antibiotic Education kb - Prescription Opioid Use kb - Patient Portal Instructions kb - Leadership Thank You Letter kb Signatures: Dorie Avila FNP-C FNP-Ckb Prokisch, Amanda, RN RN ap3 Pan Lopez MD MD ec2
--- NOTE | 2024-02-07 16:46 | ER ---
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 patient states her mouth. tongue and GI area holden. Coronavirus screen: At this time, the client does not indicate any symptoms associated with coronavirus-19. Ebola Screen: No symptoms or risks identified at this time. Initial Sepsis Screen: Does the patient meet any 2 criteria? No. Patient's initial sepsis screen is negative. Does the patient have a suspected source of infection? No. Patient's initial sepsis screen is negative. Risk Assessment: Do you want to hurt yourself or someone else? Patient reports no desire to harm self or others. Onset of symptoms was February 07, 2024. 16:12 Method Of Arrival: Ambulatory ap3 16:12 Acuity: MICHELLE 4 ap3 Triage Assessment: 16:14 General: Appears in no apparent distress. Behavior is cooperative, appropriate for age, ap3 anxious. Pain: Complains of pain in tongue. EENT: Reports pain in tongue. Neuro: Level of Consciousness is awake, alert, obeys commands, Oriented to person, place, time, situation. Cardiovascular: Patient's skin is warm and dry. Respiratory: Airway is patent Respiratory effort is even, unlabored, Respiratory pattern is regular, symmetrical. GI:. Historical: - Allergies: 16:14 Neosporin ([id number]); ap3 16:14 PENICILLINS; ap3 - PMHx: 16:14 breast cancer; ap3 - Immunization history:: Client reports receiving the 2nd dose of the Covid vaccine. - Infectious Disease History:: Denies. - Social history:: Smoking status: Patient denies any tobacco usage or history of. Screenin:15 [facility] ED Fall Risk Assessment (Adult) History of falling in the last 3 months, ap3 including since admission No falls in past 3 months (0 pts) Confusion or Disorientation No (0 pts) Intoxicated or Sedated No (0 pts) Impaired Gait No (0 pts) Mobility Assist Device Used No (0 pt) Altered Elimination No (0 pt) Score/Fall Risk Level 0 - 2 = Low Risk Oriented to surroundings, Maintained a safe environment, Educated pt \T\ family on fall prevention, incl call for assistance when getting out of bed, Assessed \T\ reinforced patient's understanding of fall precautions, Hourly rounding (assess needs \T\ fall precautionary measures) done, Used ambulatory aids as needed (educated on \T\ assisted with), Used gait belt as appropriate. Abuse screen: Denies threats or abuse. Nutritional screening: No deficits noted. Tuberculosis screening: No symptoms or risk factors identified. Vital Signs: 16:12 BP 170 / 80; Pulse 64; Resp 17; Temp 97.8; Pulse Ox 100% ; Weight 65.77 kg; Height 5 ap3 ft. 4 in. ; 16:12 Body Mass Index 24.89 (65.77 kg, 162.56 cm) ap3 ED Course: 15:58 Patient arrived in ED. am2 15:59 Fernanda Caceres MD is Private Physician. am2 16:10 Pan Lopez MD is Attending Physician. ec2 16:14 Triage completed. ap3 16:15 Arm band placed on right wrist. ap3 16:29 Dorie Avila FNP-C is [facility]. kb 17:02 Provided Education on: discharge instructions. ap3 17:02 Patient has correct armband on for positive identification. ap3 17:02 No provider procedures requiring assistance completed. Patient did not have IV access ap3 during this emergency room visit. Administered Medications: No medications were administered Medication: 17:02 VIS not applicable for this client. ap3 Outcome: 16:45 Discharge ordered by . kb 17:02 Discharged to home ambulatory, ap3 17:02 Condition: good 17:02 Discharge instructions given to patient, Instructed on discharge instructions, follow up and referral plans. Demonstrated understanding of instructions, follow-up care, 17:03 Patient left the ED. ap3 Signatures: Dorie Avila FNP-C FNP-Karen Graham am2 Karen Gomez, RN RN ap3 Pan Lopez MD MD ec2
[2024-02-07 18:35] VITALS: BP 170/80; TEMP 97.8; O2SAT 100
== END 2024-02-07 17:03 | disposition home or self-care (01) ==
LOC: ER 15:56
DX: T55.1X1A Toxic effect of detergents, accidental (unintentional), initial encounter (principal)
CPT/HCPCS: 99282

== ENCOUNTER 2024-02-17 10:18 | Day surgery (SDC) | payer OTHER, MEDICARE ==
[2024-02-13 11:14] LABS: PT Prothrombin Time 11.7 SECONDS (9.4-12.5); Protime INR 1.05
[2024-02-13 11:16] LABS: Absolute Eosinophils 0.1 K/uL (0-0.5); Absolute Lymphocytes (CBC) 1.1 K/uL (0.7-4.9); Absolute Monocytes 0.4 K/uL (0.1-1.3); Absolute Neutrophil 3.3 K/uL (1.8-8.0); Basophils % 0.4 % (0-1.3); Eosinophils % 1.4 % (0-4.4); Hematocrit 40.1 % (36.0-45.0); Hemoglobin 12.9 g/dL (12.0-15.0); Lymphocytes % 22.9 % (15.3-44.8); MCH 31.2 pg (27.0-35.0); MCHC 32.2 g/dL (32.0-36.0); MPV 10.3 fL (7.6-11.3); Monocytes % 8.2 % (3.3-12.3); Neutrophils % 67.1 % (41.7-73.7); Platelets 292 thou/uL (152-406); RBC Red Blood Cell Count 4.14 M/uL (3.86-4.86); Red Cell Distribution Width 13.6 % (12.1-15.2)
[2024-02-13 11:19] LABS: Anion Gap 5.7 mEq/L (5.0-15.0); Potassium 3.7 mEq/L (3.5-5.1)
--- NOTE | 2024-02-13 14:32 | RAD REPORT ---
EXAMINATION: TWO VIEW CHEST XR CLINICAL INDICATION: Female, 78 years old. [facility] Pre op pending carpal tunnel surgery. Hypertension TECHNIQUE: 2 view radiographs of the chest were performed. COMPARISON: 03/23/2022 FINDINGS: The lungs are well inflated and clear. No pneumothorax or sizable effusion. The heart is normal in si ze. Mediastinal contours are unremarkable. IMPRESSION: No acute or significant abnormalities.
--- NOTE | 2024-02-14 12:53 | EKG ---
Test Date: 2024-02-13 Test Time: 10:46:00 Chief Dispatcher Service: MARSHALL MEASUREMENT RESULTS: Intervals: Rate: 59 ID: [id number] QRSD: 88 QT: 424 QTc: 419 [place]: P: 66 ID: [id number] QRS: -47 T: 101 INTERPRETIVE STATEMENTS: Sinus bradycardia Left anterior fascicular block Abnormal QRS-T angle, consider primary T wave abnormality Abnormal ECG Compared to ECG 03/23/2022 10:53:14 Left anterior fascicular block now present T-wave abnormality now present Sinus rhythm no longer present Electronically Signed On 02-14-24 12:50:20 CDT by Bossman Benjamin
[2024-02-17] MEDS ORDERED: Ringers Lactate 1,000 ML IV ONE (10:37)
[2024-02-17] MEDS ORDERED: propofoL 200 MG/20 ML VIAL IV ONE (11:59)
[2024-02-17] MEDS ORDERED: MIDAZOLAM HCL 2 MG/2 ML INJ ONE (11:59)
[2024-02-17] MEDS ORDERED: LIDOCAINE 2% MPF 5 ML VIAL ONE (11:59)
[2024-02-17] MEDS ORDERED: FENTANYL CITR 100 MCG/2 ML ONE (11:59)
[2024-02-17] MEDS: CEFAZOLIN SODIUM 1 GM/VIAL ONE (12:07)
[2024-02-17] MEDS: BUPIVACAINE 0.25% PF 10 ML VIAL ONE (12:30)
[2024-02-17] MEDS ORDERED: ONDANSETRON 4 MG/2 ML VIAL ONE (12:37)
[2024-02-17] MEDS ORDERED: dexAMETHasone 4 MG/ML VIAL ONE (12:37)
--- NOTE | 2024-02-17 12:43 | P.BOP ---
Preoperative diagnosis: Left carpal tunnel syndrome Postoperative diagnosis: Same Primary procedure: Left open carpal tunnel release Computerized Table Cutter: NONE,NONE Estimated blood loss: 2 cc Specimen: None Findings: See dictation Anesthesia: General Complications: None Implants: None Fluids & blood products: Per anesthesia record; tourniquet time 13 minutes at 250 mmHg Transferred to: Recovery Room Condition: Good
--- NOTE | 2024-02-17 12:45 | P.OP ---
Preoperative diagnosis: Left carpal tunnel syndrome Postoperative diagnosis: Same Primary procedure: Left open carpal tunnel release Anesthesia: General Estimated blood loss: 2 cc Specimen: None Findings: See dictation Operative Technique: Reason for Surgery: Yokasta is a 78-year-old female that presented with physical exam findings as well as EMG findings consistent with left carpal tunnel syndrome. I discussed with the patient at length risks and benefits associated with the procedure. She expressed understanding and elected proceed with operative treatment. Description of Procedure: After informed consent was obtained the patient was identified in the preoperative holding area. The left upper extremity was marked patient. Patient then brought back to the operating room transferred the operative table in supine fashion and placed under anesthesia. The left upper extremity was exsanguinated and the tourniquet was inflated to 250 mmHg. Approximately a 3 cm longitudinal incision was made just ulnar to the thenar crease. Dissection was then taken down to the palmar fascia which was identified. A Hollenberg elevator was then placed just deep to the palmar fascia to protect the median nerve at all times. A 15 blade was then used to release the palmar fascia and transverse carpal ligament leaving the Hollenberg elevator to protect the nerve at all times. Any remaining fascial bands were then released using a blunt tip Metzenbaum scissor. The tips were him superficially to protect the median nerve at all times. The wound was then irrigated thoroughly with normal saline. The skin was approximated using a 5-0 Prolene. Sterile dressings were applied and patient was awakened and transferred to PACU in stable condition. Postoperative plan: The patient will follow-up in 1 to 2 weeks for wound check and suture removal. She may begin to work on range of motion exercises at this time. Complications: None Implants: None Fluids & blood products: Per anesthesia record; tourniquet time 13 minutes at 250 mmHg Transferred to: Recovery Room Condition: Good
[2024-02-17 12:59] VITALS: O2SAT 100
[2024-02-17 14:09] VITALS: BP 158/58; TEMP 97.3
== END 2024-02-17 14:00 | disposition home or self-care (01) ==
LOC: OR 10:18
PROVIDERS: ATTEND Orthopaedic Surgery Sports Medicine
PROC: 01N50ZZ Release Median Nerve, Open Approach (ICD-10-PCS; principal; 2024-02-17 14:15)
DX: G56.02 Carpal tunnel syndrome, left upper limb (principal)
CPT/HCPCS: 93005; 85025; 80048; 36415; 85610; 85730; 71046; 64721; J2704; J1100; J2003; J2250; J3010; J2405; J7120; J0690